=== PATIENT | female | born 1995 | race Caucasian/White ===

== ENCOUNTER 2021-09-27 10:45 | Emergency (ER) | payer OTHER ==
[~2021-09-27] VITALS: Ht 162.6 cm; Wt 68.0 kg
[2021-09-27 10:49] VITALS: BP 131/74
[2021-09-27 13:00] LABS: BASOPHILS % 0.8 % (0.0-2.0); EOSINOPHILS % 0.9 % (0.0-5.0); HEMATOCRIT. 41.7 % (36.0-48.0); HEMOGLOBIN. 14.5 g/dL (12.0-16.0); LYMPHOCYTES % 15.6 % (20.0-50.0); MEAN CORPUSCULAR HEMOGLOBIN 31.3 pg (28.0-32.0); MEAN CORPUSCULAR VOLUME 90.2 fL (81.0-99.0); MEAN PLATELET VOLUME 7.9 fl (7.4-10.4); MONOCYTES % 5.6 % (2.0-8.0); NEUTROPHILS % 77.1 % (40.0-76.0); PLATELET 298 x1000/uL (130-400); RED BLOOD CELL COUNT 4.62 mill/uL (4.2-5.4); RED CELL DISTRIBUTION WIDTH 12.8 % (11.6-14.6)
[2021-09-27 13:05] LABS: CHLORIDE 106 mEq/L (98-107)
[2021-09-27 13:09] LABS: HCG SCREEN NEGATIVE
== END 2021-09-27 16:20 | disposition home or self-care (01) ==
LOC: ER 10:45
DX: R06.4 Hyperventilation (principal); Z90.49 Acquired absence of other specified parts of digestive tract
CPT/HCPCS: 36415; 71045; 80053; 84484; 84703; 85025; 93005; 99285